=== PATIENT | female | born 1995 | race African-American/Black ===

== ENCOUNTER 2018-02-15 00:20 | Emergency (ER) | payer OTHER ==
[~2018-02-15] VITALS: Ht 172.7 cm; Wt 113.4 kg
[~2018-02-15 00:20] MED LIST: MAGIC MOUTHWASH SWISH&SPIT; MOBIC7.5 MG PO; NOHOMEMEDICATIONS; NORCO 5-325 TA1 EACH PO; NORFLEX100 MG PO; NUVARING VAGIN1 EACH VG; ONDANSETRON HCL4 M2 PO; PROZAC20 MG PO; TRINATE TABLET1 TAB PO
[2018-02-15] MEDS ORDERED: PRENATAL PO (00:44)
[2018-02-15] MEDS ORDERED: TYLENOL325 MG PO (00:45)
[2018-02-15] MEDS ORDERED: UNISOM25 MG PO (00:45)
[2018-02-15 01:03] LABS: URINE BILIRUBIN NEGATIVE (Negative); URINE BLOOD NEGATIVE (Negative); URINE CLARITY CLEAR; URINE COLOR YELLOW; URINE GLUCOSE-RANDOM* NEGATIVE (Negative); URINE KETONES 1+ (Negative); URINE LEUKOCYTES-REFLEX NEGATIVE (Negative); URINE NITRITE-REFLEX NEGATIVE (Negative); URINE PROTEIN (DIPSTICK) TRACE (Negative); URINE SPECIFIC GRAVITY >= 1.030 (1.005-1.035); URINE UROBILINOGEN 0.2 E.U./dl (0.2-1.0)
[2018-02-15] MEDS ORDERED: ZOFRAN ODT4 MG DISSOLVE (01:30)
[2018-02-15 01:38] VITALS: BP 107/58
== END 2018-02-15 01:42 | disposition home or self-care (01) ==
LOC: ER 00:20
PROVIDERS: Emergency Medicine
DX: O26.892 Other specified pregnancy related conditions, second trimester (principal); O99.512 Diseases of the respiratory system complicating pregnancy, second trimester; Z3A.19 19 weeks gestation of pregnancy; R10.9 Unspecified abdominal pain; R11.0 Nausea; J45.909 Unspecified asthma, uncomplicated

== ENCOUNTER 2018-08-14 16:16 | Emergency (ER) | payer OTHER ==
[~2018-08-14] VITALS: Ht 170.2 cm; Wt 113.4 kg
[~2018-08-14 16:16] MED LIST changes: +PRENATAL PO; +TYLENOL325 MG PO; +UNISOM25 MG PO; +ZOFRAN ODT4 MG DISSOLVE
[2018-08-14 16:36] LABS: URINE BILIRUBIN NEGATIVE (Negative); URINE BLOOD 3+ (Negative); URINE CLARITY CLEAR; URINE COLOR YELLOW; URINE GLUCOSE-RANDOM* NEGATIVE (Negative); URINE KETONES NEGATIVE (Negative); URINE LEUKOCYTES-REFLEX NEGATIVE (Negative); URINE NITRITE-REFLEX NEGATIVE (Negative); URINE PROTEIN (DIPSTICK) NEGATIVE (Negative); URINE SPECIFIC GRAVITY 1.025 (1.005-1.035); URINE UROBILINOGEN 0.2 E.U./dl (0.2-1.0)
[2018-08-14 16:45] LABS: BACTERIA-REFLEX 1-9 Few /HPF (None Seen); CASTS None Seen /LPF (None Seen); CRYSTALS None Seen /LPF (None Seen); SQUAMOUS 0-3 Few /LPF (0-3); URINE RBC 0-2 Rare /HPF (0-2); URINE WBC-REFLEX 0-5 Rare /HPF (0-5)
[2018-08-14 16:59] LABS: ABSOLUTE NEUTROPHILS 3.2 thou/uL (1.4-8.2); BASOPHILS 0.7 % (0.0-2.0); EOSINOPHILS 1.4 % (0.0-3.0); HEMATOCRIT 41.1 % (37.0-47.0); HEMOGLOBIN 13.6 gm/dL (12.0-15.0); LYMPHOCYTES 37.4 % (24.0-44.0); MCH 27.2 pg (26.0-34.0); MCV 82.6 fL (80.0-100.0); MONOCYTES 5.4 % (1.0-8.0); PLATELET COUNT 331 thou/uL (150-400); POLYS 55.1 % (36.0-66.0); RBC 4.98 mil/uL (4.20-5.00); RDW 14.7 % (10.5-14.5); WBC 5.8 thou/uL (4.0-11.0)
[2018-08-14 17:03] LABS: CALCIUM 9.1 mg/dL (8.5-10.1); CREATININE 0.8 mg/dL (0.6-1.0); POTASSIUM 3.7 mmol/L (3.5-5.1)
[2018-08-14 17:37] VITALS: BP 113/69
== END 2018-08-14 17:41 | disposition home or self-care (01) ==
LOC: ER 16:16
PROVIDERS: Physician Assistant
DX: N93.9 Abnormal uterine and vaginal bleeding, unspecified (principal); J45.909 Unspecified asthma, uncomplicated; R51 Headache; R11.0 Nausea

== ENCOUNTER 2018-10-17 08:32 | Emergency (ER) | payer OTHER ==
[~2018-10-17] VITALS: Ht 170.2 cm; Wt 108.9 kg
[2018-10-17] MEDS ORDERED: NAPROSYN500 MG PO (09:23)
[2018-10-17 12:36] VITALS: BP 124/62
== END 2018-10-17 11:30 | disposition home or self-care (01) ==
LOC: ER 08:32
DX: J02.9 Acute pharyngitis, unspecified (principal); F32.9 Major depressive disorder, single episode, unspecified; J45.909 Unspecified asthma, uncomplicated; Z90.89 Acquired absence of other organs

== ENCOUNTER 2018-11-28 08:49 | Emergency (ER) | payer OTHER ==
[~2018-11-28] VITALS: Ht 170.2 cm; Wt 108.9 kg
[~2018-11-28 08:49] MED LIST changes: +NAPROSYN500 MG PO
[2018-11-28] MEDS ORDERED: CEPACOL SORE T1 EAC7 PO (09:39)
[2018-11-28 09:47] VITALS: BP 113/77
== END 2018-11-28 09:47 | disposition home or self-care (01) ==
LOC: ER 08:49
DX: J02.8 Acute pharyngitis due to other specified organisms (principal); B97.89 Other viral agents as the cause of diseases classified elsewhere; F32.9 Major depressive disorder, single episode, unspecified; J45.909 Unspecified asthma, uncomplicated

== ENCOUNTER 2019-10-03 12:11 | Emergency (ER) | payer OTHER ==
[~2019-10-03] VITALS: Ht 172.7 cm; Wt 108.9 kg
[~2019-10-03 12:11] MED LIST changes: +CEPACOL SORE T1 EAC7 PO
[2019-10-03] MEDS ORDERED: ONDANSETRON HCL4 M2 PO (14:07)
[2019-10-03] MEDS ORDERED: MEDROLDOSEPACK PO (14:07)
[2019-10-03 14:18] VITALS: BP 120/75
== END 2019-10-03 14:19 | disposition home or self-care (01) ==
LOC: ER 12:11
DX: J06.9 Acute upper respiratory infection, unspecified (principal); R05 Cough; R09.89 Other specified symptoms and signs involving the circulatory and respiratory systems; J45.909 Unspecified asthma, uncomplicated; Z90.89 Acquired absence of other organs

== ENCOUNTER 2019-10-18 12:14 | Emergency (ER) | payer OTHER ==
[~2019-10-18] VITALS: Ht 172.7 cm; Wt 108.9 kg
[~2019-10-18 12:14] MED LIST changes: +MEDROLDOSEPACK PO
[2019-10-18 13:09] LABS: HEMATOCRIT 37.2 % (37.0-47.0); MCH 26.7 pg (26.0-34.0); MCHC 32.3 g/dL (28.0-37.0); MCV 82.8 fL (80.0-100.0); PLATELET COUNT 207 thou/uL (150-400); RBC 4.49 mil/uL (4.20-5.00); RDW 14.3 % (10.5-14.5); WBC 2.7 thou/uL (4.0-11.0)
[2019-10-18 13:12] LABS: CREATININE 0.7 mg/dL (0.6-1.0); POTASSIUM 3.6 mmol/L (3.5-5.1)
[2019-10-18 13:17] LABS: ALBUMIN 3.3 g/dL (3.4-5.0); TOTAL BILIRUBIN 0.2 mg/dL (<0.1-1.0); TOTAL PROTEIN 6.8 g/dL (6.4-8.2)
[2019-10-18] MEDS ORDERED: IMITREX 25 MG T25 M1 PO ×2 (13:43→14:01)
[2019-10-18 13:48] LABS: ABSOLUTE NEUTROPHILS 1.1 thou/uL (1.4-8.2); ANISOCYTOSIS 1+; ATYPICAL LYMPHS 3 %
[2019-10-18 14:01] VITALS: BP 124/71
[2019-10-19] MEDS ORDERED: BUTALB-APAP-CA1 EACH PO (17:53)
== END 2019-10-18 14:01 | disposition home or self-care (01) ==
LOC: ER 12:14
PROVIDERS: Physician Assistant
DX: G43.909 Migraine, unspecified, not intractable, without status migrainosus (principal); D72.819 Decreased white blood cell count, unspecified; J45.909 Unspecified asthma, uncomplicated; F32.9 Major depressive disorder, single episode, unspecified; Z90.49 Acquired absence of other specified parts of digestive tract

== ENCOUNTER 2019-10-19 15:17 | Emergency (ER) | payer OTHER ==
[~2019-10-19] VITALS: Ht 172.7 cm; Wt 108.9 kg
[~2019-10-19 15:17] MED LIST changes: +IMITREX 25 MG T25 M1 PO
[2019-10-19] MEDS ORDERED: BUTALB-APAP-CA1 EACH PO (17:53)
[2019-10-19 17:55] VITALS: BP 116/72
== END 2019-10-19 18:00 ==
LOC: ER 15:17
DX: G43.909 Migraine, unspecified, not intractable, without status migrainosus (principal); J45.909 Unspecified asthma, uncomplicated; F32.9 Major depressive disorder, single episode, unspecified; Z90.89 Acquired absence of other organs

== ENCOUNTER 2019-11-19 17:41 | Emergency (ER) | payer OTHER ==
[~2019-11-19] VITALS: Ht 172.7 cm; Wt 108.9 kg
[~2019-11-19 17:41] MED LIST changes: +BUTALB-APAP-CA1 EACH PO
[2019-11-19 17:42] VITALS: BP 115/72
[2019-11-19] MEDS ORDERED: FLONASE 0.05%50 MCG NARES (17:45)
[2019-11-19] MEDS ORDERED: PROAIR HFA8.5 GM INH (17:45)
[2019-11-19] MEDS ORDERED: IPRATROPIUM BRO15 ML NASAL (17:45)
== END 2019-11-19 18:12 | disposition home or self-care (01) ==
LOC: ER 17:41
DX: J45.901 Unspecified asthma with (acute) exacerbation (principal); J06.9 Acute upper respiratory infection, unspecified; F32.9 Major depressive disorder, single episode, unspecified

== ENCOUNTER 2021-10-22 10:20 | Emergency (ER) | payer OTHER ==
[~2021-10-22] VITALS: Ht 172.7 cm; Wt 115.7 kg
[~2021-10-22 10:20] MED LIST changes: +FLONASE 0.05%50 MCG NARES; +IPRATROPIUM BRO15 ML NASAL; +PROAIR HFA8.5 GM INH
[2021-10-22 10:52] LABS: URINE BILIRUBIN NEGATIVE (Negative); URINE BLOOD 3+ (Negative); URINE CLARITY CLEAR; URINE COLOR YELLOW; URINE GLUCOSE-RANDOM* NEGATIVE (Negative); URINE KETONES NEGATIVE (Negative); URINE PROTEIN (DIPSTICK) 2+ (Negative); URINE SPECIFIC GRAVITY >= 1.030 (1.005-1.035)
[2021-10-22 11:09] LABS: URINE LEUKOCYTES-REFLEX 2+ (Negative); URINE NITRITE-REFLEX POSITIVE (Negative)
[2021-10-22 11:22] LABS: CASTS None Seen /LPF (None Seen); MUCUS >6 Heavy strn/LPF (None Seen); SQUAMOUS 4-10 Moderate /LPF (0-3)
[2021-10-22 11:23] LABS: BACTERIA-REFLEX >30 Many /HPF (None Seen); CRYSTALS None Seen /LPF (None Seen); URINE RBC 1-2 Rare /HPF (NONE SEEN); URINE WBC-REFLEX >25 Many /HPF (0-5)
[2021-10-22 12:13] VITALS: BP 121/73
[2021-10-22] MEDS ORDERED: CEPHALEXIN 250250 M1 PO (12:14)
[2021-10-22] MEDS ORDERED: METHOCARBAMOL500 M2 PO (12:14)
[2021-10-22] MEDS ORDERED: ZOFRAN ODT4 MG PO (12:14)
[2021-10-22] MEDS ORDERED: VENTOLIN HFA 1818 GM INH (15:23)
[2021-10-25] MEDS ORDERED: CEPHALEXIN500 MG PO (07:36)
== END 2021-10-22 12:13 | disposition home or self-care (01) ==
LOC: ER 10:20
PROVIDERS: Emergency Medicine
DX: N39.0 Urinary tract infection, site not specified (principal); Z20.822 Contact with and (suspected) exposure to COVID-19; J45.909 Unspecified asthma, uncomplicated; F32.9 Major depressive disorder, single episode, unspecified; Z90.89 Acquired absence of other organs; Z79.51 Long term (current) use of inhaled steroids; Z79.899 Other long term (current) drug therapy